=== PATIENT | male | born 1970 | race Caucasian/White ===

== ENCOUNTER 2022-06-18 07:30 | Outpatient (RCR) | payer OTHER, SELFPAY | END 2022-08-01 12:04 | disposition home or self-care (01) | PROVIDERS: Visit Provider Family Medicine | DX: M51.26 Other intervertebral disc displacement, lumbar region (principal); M54.32 Sciatica, left side; Z51.89 Encounter for other specified aftercare | CPT/HCPCS: 97110; 97140; 97162 ==

== ENCOUNTER 2024-02-16 10:51 | Emergency (ER) | payer BC, SELFPAY ==
[2024-02-16] VITALS (8 sets, daily range): BP systolic 141; BP diastolic 99; PULSE 54–73; RESP 18; TEMP 36.3; O2SAT 92–98; BMI 40.0
--- NOTE | 2024-02-16 11:10 | ED.ABDPAIN ---
HPI - Abdominal Pain General Time Seen by Provider: 11:10 Date Seen: 02/16/24 Chief Complaint: Abdominal Pain Stated Complaint: Abdominal pain Time Seen by Provider: 02/16/24 11:09 Source: patient and RN notes reviewed Mode of arrival: ambulatory Limitations: no limitations History of Present Illness HPI narrative: This 53-year-old male is coming in with left-sided abdominal pain that has gotten progressively worse over the last 3 hours. He thought maybe he was having some hunger pains, tried some Danish toast this morning and made it worse. He denies any nausea or vomiting, no fevers or chills. The pain makes him think that he has maybe had problems passing bowels today, has not had a bowel movement, is not passing flatus. He notes he has urinated but at the time I am talking to him, feels like he might need to both urinate and defecate. Prior to this is not noted any urinary changes. No history of kidney stones. He has never had a colonoscopy. He has had a remote appendectomy, no other abdominal surgery. He does not feel he has passed any flatus today. He denies significant issues with prior ball habits but now that he has pain, he thinks maybe was having difficulty going the last couple of days but only because he has pain now did he realize this. MD elicited complaint: abdominal pain Related Data Previous Rx's ?Medication ?Instructions ?Recorded ketorolac 10 mg tablet 10 mg PO Q6H PRN pain #20 tabs 02/16/24 ondansetron 4 mg disintegrating 4 mg PO Q6H PRN nausea and 02/16/24 tablet vomiting #20 tabs oxycodone 5 mg tablet 5 mg PO Q6H PRN pain #10 tabs 02/16/24 tamsulosin 0.4 mg capsule (Flomax) 0.4 mg PO DAILY #7 caps 02/16/24 Allergies Allergy/AdvReac Type Severity Reaction Status Date / Time No Known Drug Allergies Allergy Verified 02/16/24 11:07 Review of Systems Status of ROS Reports: 6 or more systems reviewed and unremarkable except as noted in History and below [facility] Surgical History (Updated 02/16/24 @ 11:19 by Annabel Tate MD) History of appendectomy ?Z90.49 - Acquired absence of other specified parts of digestive tract (ICD-10) Exam Const: Vital Signs, click to edit/add: Vital Signs - 24 hr 02/16/24 11:04 02/16/24 12:33 02/16/24 12:45 Temperature 97.4 F L Pulse Rate 68 65 Pulse Rate [Right Pulse Oximeter] 54 L Respiratory Rate 18 Blood Pressure [Ri ght Upper Arm] 141/99 H Pulse Oximetry 98 92 93 Oxygen Delivery Me thod Room Air 02/16/24 13:00 Temperature Pulse Rate 73 Pulse Rate [Right Pulse Oximeter] Respiratory Rate Blood Pressure [Ri ght Upper Arm] Pulse Oximetry 92 Oxygen Delivery Me thod This 53-year-old male is alert and interactive but in obvious pain. He definitely looks uncomfortable, hanging onto the left side of his abdomen. Sclera clear face atraumatic, able speak in complete sentences. Neck is thick but no noted jugular venous distention. Lungs are clear, good air entry, no wheezing or crackles. CV regular rate and rhythm, no murmur. Abdomen is obese but soft, do not hear bowel sounds but he does not seem to be distended. He has no rebound or guarding, no organomegaly but there is mid left lateral abdominal pain. He has no lower extremity edema, is ambulatory in the ER. Documenting provider has reviewed patient's vital signs: yes Course Course ED Course: This patient certainly could have problems with:, diverticulitis, atypical colitis, possible urinary abnormalities such as kidney stones, early bowel obstruction with history of appendectomy. We will be getting imaging. Will give him Toradol and Zofran for symptom control. There is a shortage of fluids nationwide that is critical, will withhold fluids at this point. We will get full complement of labs including urinalysis. Reevaluation(s) Time of Reevaluation #1: 11:21 Reevaluation #1: Patient requested to go to the bathroom right after I evaluated him. He started having vomiting in the bathroom. Will also order Zofran. Time of Reevaluation #2: 11:45 Reevaluation #2: This patient is now back in the restroom having more emesis. He just had his IV placed, did get Zofran and Toradol. Will give him another dose of Zofran for a total loading of 8 mg of Zofran, will give him [address] Will place him on pulse oximetry. Time of Reevaluation #3: 13:51 Reevaluation #3: Reviewed CT findings which are benign outside of the splenic calcified cyst which is not the causative etiology. Did provide a handout of the CT report. We reviewed that contrast was used and is likely obscuring a left-sided kidney stone or the left-sided kidney stone has already passed into the bladder. Will send home medications to treat for kidney stone including a week's worth of Flomax. We will have him strain his urine especially if pain returns. We have discussed signs and symptoms for return. Plan will be to discharge to home. He is much better at this time. Have reviewed with him that he really needs to push fluids. Vital Signs Vital signs: Initial Vital Signs Temperature 97.4 F L 02/16/24 11:04 Temperature Source Temporal Artery Scan 02/16/24 11:04 Pulse Rate 54 L 02/16/24 11:04 Respiratory Rate 18 02/16/24 11:04 Blood Pressure 141/99 H 02/16/24 11:04 Blood Pressure Mean 113 H 02/16/24 11:04 Blood Pressure Position Sitting 02/16/24 11:04 Pulse Oximetry 98 02/16/24 11:04 Oxygen Delivery Method Room Air 02/16/24 11:04 Vital Signs Temperature 97.4 F L 02/16/24 11:04 Pulse Rate 54 L 02/16/24 11:04 Respiratory Rate 18 02/16/24 11:04 Blood Pressure 141/99 H 02/16/24 11:04 Pulse Oximetry 98 02/16/24 11:04 Oxygen Delivery Method Room Air 02/16/24 11:04 Temperature 97.4 F L 02/16/24 11:04 Pulse Rate 73 02/16/24 13:00 Respiratory Rate 18 02/16/24 11:04 Blood Pressure 141/99 H 02/16/24 11:04 Pulse Oximetry 92 02/16/24 13:00 Oxygen Delivery Method Room Air 02/16/24 11:04 Medications Administered Medications: Discontinued Medications Generic Name Dose Route Start Last Admin Trade Name Freq PRN Reason Stop Dose Admin Ketorolac Tromethamine 15 mg 02/16/24 11:16 02/16/24 11:45 Ketorolac 15 Mg/Ml Inj IVP 02/16/24 11:17 15 mg ONCE ONE Administration Ondansetron HCl 4 mg 02/16/24 11:16 02/16/24 11:45 Ondansetron 2 Mg/Ml Inj IVP 02/16/24 11:17 4 mg ONCE ONE Administration MDM - Abdominal Pain Lab Data Attestation: I reviewed the patient's lab results. Labs: Lab Results 02/16/24 Range/Units 11:45 WBC 6.99 (4.50-11.00) K/uL RBC 4.70 (4.30-5.90) m/uL Hgb 14.5 (13.5-17.5) gm/dL Hct 43.5 (37.0-53.0) % MCV 93 (80-100) fL MCH 31 (26-34) pg MCHC 33 (32-36) gm/dL RDW Coeff of Jesus 13.1 (11.5-15.5) % Plt Count 256 (140-440) K/uL Neut % (Auto) 64.8 (42.0-72.0) % Lymph % (Auto) 26.6 (20-44) % Irwin % (Auto) 6.9 (0.0-11.0) % Eos % (Auto) 1.1 (0.0-7.0) % Baso % (Auto) 0.3 (0.0-3.0) % Neut # (Auto) 4.53 (1.7-7.0) K/uL Lymph # (Auto) 1.86 (0.90-2.90) K/uL Irwin # (Auto) 0.50 (0.00-0.90) K/UL Eos # (Auto) 0.08 (0.00-0.50) K/uL Baso # (Auto) 0.02 (0.00-0.30) K/uL Abs Immat Gran (auto) 0.02 (0.00-0.30) K/uL Imm/Tot Granulo (auto) 0.3 % Sodium 138 (135-149) mmol/L Potassium 4.3 (3.6-5.1) mmol/L Chloride 103 (96-114) mmol/L Carbon Dioxide 26 (20-32) mmol/L Anion Gap 9 (7-15) mEq/L BUN 15 (7-30) mg/dL Creatinine 1.0 (0.5-1.5) mg/dL Estimated Creat Clear 104.45 Estimated GFR 91 ml/min Glucose 112 (60-115) mg/dL Lactate 2.0 H (0.5-1.9) mmol/L Calcium 9.6 (8.4-10.6) mg/dL Total Bilirubin 0.7 (0.1-1.5) mg/dL AST 30 (12-35) U/L ALT 28 (4-50) U/L Alkaline Phosphatase 63 (40-150) U/L C-Reactive Protein < 0.5 L (0.5-1.0) mg/dL Total Protein 8.2 (6.0-8.3) g/dL Albumin 4.8 (3.3-5.0) g/dL Urine Color Yellow (Yellow) Urine Appearance Clear (Clear) Urine pH 7.0 (5.0-8.5) Ur Specific Deale 1.025 (1.000-1.030) Urine Protein Negative (Negative) Urine Glucose (UA) Negative (Negative) Urine Ketones Negative (Negative) Urine Blood 2+ A (Negative) Urine Nitrite Negative (Negative) Urine Bilirubin Negative (Negative) Urine Urobilinogen 0.2 (0.2-1.0) Ur Leukocyte Esterase Negative (Negative) Urine RBC 10-25 A (0-2) Urine WBC 2-5 (0-5) Ur Squamous Epith Cells Few (None-Few) Urine Bacteria Few A (None) Imaging Data CT scan - abdomen: Attestation: I have reviewed the pertinent imaging results. Radiologist's impression: Patient: [place]ANNAN [place] Facility:?[facility] Patient ID:?[id number] Site Patient ID:?[id number]. Site :?[id number] Study:?CT-Abdomen/Pelvis w/ 150cc [id number] 12:23:28 PM Ordering Physician:Arabella Jin Final Report: INDICATION: Abdominal pain. TECHNIQUE: Multiplanar CT examination of the abdomen and pelvis was performed after the administration of 150 mL Isovue 370 intravenous contrast. COMPARISON: CT abdomen pelvis 10/19/2020. FINDINGS: Lower chest: No focal consolidation. Normal heart size. No pleural effusions or pneumothorax. Dependent atelectasis. Small hiatal hernia. Liver: Unremarkable. Gallbladder: Unremarkable. Biliary: Unremarkable. Pancreas: Within normal limits. Spleen: 5.6 cm simple appearing splenic cystic lesion with peripheral calcifications. Adrenal glands: Unremarkable. Renal/ureters/bladder: Normal in size and symmetrically enhancing. No obstructive uropathy. No hydronephrosis or obstructive urinary calculi. No suspicious renal masses. The ureters appear unremarkable. The bladder is within normal limits. Pelvis: Unremarkable. Gastrointestinal: No bowel wall thickening or bowel obstruction. Nonvisualized appendix, however there are no pericecal inflammatory changes to suggest acute appendicitis. No significant colonic diverticulosis. Mild colonic stool burden. Vasculature: No aortic aneurysm. The portal vein remains patent. No significant atherosclerotic calcifications. Lymph nodes: No pathologic lymphadenopathy by size criteria. Peritoneum: No free fluid or pneumoperitoneum. No drainable fluid collections. Abdominal wall/soft tissues: Unremarkable. Bones: No acute osseous abnormalities. IMPRESSION: 1. No acute abdominopelvic pathology. The etiology of patient`s abdominal pain is not elucidated on this examination. 2. Small hiatal hernia. Please note that all CT scans at this facility use dose modulation, iterative reconstruction, and/or weight-based dosing when appropriate to reduce radiation dose to as low as reasonably achievable. Dictated by Wilman Lo MD @ 02/16/2024 1:34:47 PM (Electronic Signature) Discharge Plan Discharge Clinical Impression: Microscopic hematuria Abdominal pain Qualifiers: Abdominal location: unspecified location Qualified Code(s): R10.9 - Unspecified abdominal pain Patient Disposition: Home, Self-Care Condition: Stable Instructions: Kidney Stones (ED), Renal Colic (ED) Additional Instructions: Given the microscopic hematuria on her urinalysis and your presentation of symptoms, this is presumably a left-sided kidney stone. Schedule clinic follow-up within the next week for ongoing symptoms, can take small stones 1-2 weeks to pass. If the stone is not passing, may need to be referred to Urology which can be done through your primary clinic. Drink plenty of fluids, including water, for goal of keeping urine clear looking. If you have not had previous kidney stones identified before, strain urine and collect stone to take to your primary care clinic for stone analysis. Tylenol a 1000 mg 3 times a day baseline for pain. Take Flomax daily until the stone has passed. Toradol 10 mg up to 4 times a day if needed for extra pain control. If you are getting a prescription for narcotics, they can be constipating and may need bowel management with MiraLax 17 g daily. If MiraLax is not enough, then senna 1-2 tablets once to twice daily can be used as well. Should your pain management be inadequate, develop vomiting, or have fever develop in the context of a kidney stone, need to return to the ER for further evaluation. Prescriptions: New tamsulosin [Flomax] 0.4 mg capsule 0.4 mg PO DAILY Qty: 7 0RF oxycodone 5 mg tablet 5 mg PO Q6H PRN (Reason: pain) Qty: 10 0RF ketorolac 10 mg tablet 10 mg PO Q6H PRN (Reason: pain) Qty: 20 0RF Rx Instructions: maximum total duration of 5 days from all oral, intranasal, or parenteral formulations ondansetron 4 mg tablet,disintegrating 4 mg PO Q6H PRN (Reason: nausea and vomiting) Qty: 20 0RF Follow Up/Referrals: Provider,Not a Local [Non-Staff] - Stand Alone Forms: [facility] Info Instructions
--- NOTE | 2024-02-16 11:16 | CRLHL7_ITS ---
For Patients: As a result of the Century Cures Act, medical imaging exams and procedure reports are released immediately into your electronic medical record. You may view this report before your referring provider. If you have questions, please contact your health care provider. INDICATION: Abdominal pain. TECHNIQUE: Multiplanar CT examination of the abdomen and pelvis was performed after the administration of 150 mL Isovue 370 intravenous contrast. COMPARISON: CT abdomen pelvis 10/19/2020. FINDINGS: Lower chest: No focal consolidation. Normal heart size. No pleural effusions or pneumothorax. Dependent atelectasis. Small hiatal hernia. Liver: Unremarkable. Gallbladder: Unremarkable. Biliary: Unremarkable. Pancreas: Within normal limits. Spleen: 5.6 cm simple appearing splenic cystic lesion with peripheral calcifications. Adrenal glands: Unremarkable. Renal/ureters/bladder: Normal in size and symmetrically enhancing. No obstructive uropathy. No hydronephrosis or obstructive urinary calculi. No suspicious renal masses. The ureters appear unremarkable. The bladder is within normal limits. Pelvis: Unremarkable. Gastrointestinal: No bowel wall thickening or bowel obstruction. Nonvisualized appendix, however there are no pericecal inflammatory changes to suggest acute appendicitis. No significant colonic diverticulosis. Mild colonic stool burden. Vasculature: No aortic aneurysm. The portal vein remains patent. No significant atherosclerotic calcifications. Lymph nodes: No pathologic lymphadenopathy by size criteria. Peritoneum: No free fluid or pneumoperitoneum. No drainable fluid collections. Abdominal wall/soft tissues: Unremarkable. Bones: No acute osseous abnormalities. IMPRESSION: 1. No acute abdominopelvic pathology. The etiology of patient`s abdominal pain is not elucidated on this examination. 2. Small hiatal hernia. Please note that all CT scans at this facility use dose modulation, iterative reconstruction, and/or weight-based dosing when appropriate to reduce radiation dose to as low as reasonably achievable. Dictated by Wilman Lo MD @ 02/16/2024 1:34:47 PM (Electronically Signed)
[2024-02-16] MEDS: KETOROLAC 15 MG/ML inj IVP (11:45)
[2024-02-16] MEDS: ONDANSETRON 2 MG/ML inj 4 MG IVP (11:45)
[2024-02-16 11:53] LABS: Appearance Urine Clear (Clear); Bilirubin Urine Negative (Negative); Blood Urine 2+ (Negative); Color Urine Yellow (Yellow); Glucose Urine Negative (Negative); Ketones Urine Negative (Negative); Leukocyte Esterase Urine Negative (Negative); Nitrite Urine Negative (Negative); Protein Urine Negative (Negative); Specific Gravity Urine 1.025 (1.000-1.030); Urobilinogen Urine 0.2 (0.2-1.0)
[2024-02-16 11:54] LABS: Basophils Absolute Auto 0.02 K/uL (0.00-0.30); Basophils Percent Auto 0.3 % (0.0-3.0); Eosinophils Absolute Auto 0.08 K/uL (0.00-0.50); Eosinophils Percent Auto 1.1 % (0.0-7.0); Hematocrit 43.5 % (37.0-53.0); Hemoglobin* 14.5 gm/dL (13.5-17.5); Immature Granulocytes Abs Auto 0.02 K/uL (0.00-0.30); Immature Granulocytes Pct Auto 0.3 %; Lymphocytes Absolute Auto 1.86 K/uL (0.90-2.90); Lymphocytes Percent Auto 26.6 % (20-44); Mean Corpuscular HGB Conc 33 gm/dL (32-36); Mean Corpuscular Hemoglobin 31 pg (26-34); Mean Corpuscular Volume 93 fL (80-100); Monocytes Percent Auto 6.9 % (0.0-11.0); Neutrophils Absolute Auto 4.53 K/uL (1.7-7.0); Neutrophils Percent Auto 64.8 % (42.0-72.0); Platelet Count* 256 K/uL (140-440); RDW Coefficient of Variation % 13.1 % (11.5-15.5); White Blood Count* 6.99 K/uL (4.50-11.00)
[2024-02-16 12:01] LABS: Slide Review Reflex No
[2024-02-16 12:05] LABS: Bacteria Urine Few; Squamous Epithelial Cell Urine Few (None-Few)
[2024-02-16 12:12] LABS: Albumin* 4.8 g/dL (3.3-5.0); Chloride* 103 mmol/L (96-114)
[2024-02-16 12:13] LABS: Potassium* 4.3 mmol/L (3.6-5.1); Sodium* 138 mmol/L (135-149)
[2024-02-16 12:15] LABS: Est. Creatinine Clearance* 104.45; Estimated Glomerular Filt Rate 91 ml/min
[2024-02-16 12:16] LABS: Alanine Aminotransferase* 28 U/L (4-50); Alkaline Phosphatase* 63 U/L (40-150); Anion Gap 9 mEq/L (7-15); Aspartate Amino Transferase* 30 U/L (12-35); Bilirubin Total* 0.7 mg/dL (0.1-1.5); Blood Urea Nitrogen* 15 mg/dL (7-30); Carbon Dioxide* 26 mmol/L (20-32); Glucose* 112 mg/dL (60-115); Total Protein* 8.2 g/dL (6.0-8.3)
[2024-02-16 12:17] LABS: Calcium* 9.6 mg/dL (8.4-10.6)
[2024-02-16 12:19] LABS: C Reactive Protein* < 0.5 mg/dL (0.5-1.0)
== END 2024-02-16 14:08 | disposition home or self-care (01) ==
PROVIDERS: Emergency Provider Family Medicine; PCP Family Medicine
DX: R31.29 Other microscopic hematuria (principal); R10.9 Unspecified abdominal pain
CPT/HCPCS: 36415; 74177; 80053; 81001; 83605; 85025; 86140; 87086; 94761; 96374; 96375; 99284; J1885; J2405; Q9967

== ENCOUNTER 2024-12-15 11:15 | Outpatient (RCR) | payer BC, SELFPAY | END 2025-04-14 23:59 | disposition home or self-care (01) | PROVIDERS: PCP Family Medicine; Visit Provider Family Medicine | DX: M47.816 Spondylosis without myelopathy or radiculopathy, lumbar region (principal); M43.16 Spondylolisthesis, lumbar region; Z51.89 Encounter for other specified aftercare | CPT/HCPCS: 97012; 97110; 97162 ==